=== PATIENT | female | born 2000 | race Two or more races ===

== ENCOUNTER 2021-11-03 18:30 | Emergency (ER) | payer SELFPAY ==
[~2021-11-03] VITALS: Ht 162.6 cm; Wt 61.7 kg
--- NOTE | 2021-11-03 18:46 | NUR ---
TO ER BED 4, [id number] C/O LEFT EYE PAIN WAS SEEN AT [facility] YESTERDAY AND PRESCRIBED BACTRIM, UPON ARRIVAL C/O FINGERTIPS TINGLING, AAOX3, DENIES, CONNECTED TO MONITOR, AWAITING MD ALLAN
--- NOTE | 2021-11-03 19:33 | NUR ---
URINE COLLECTED AND SENT TO LAB
[2021-11-03] MEDS ORDERED: diphenhydrAMINE HCL 50 MG/ML VIAL IV ONE (21:00)
[2021-11-03] MEDS ORDERED: KETOROLAC TROMETHAMINE INJ 30 MG/ML VIAL IV ONE (21:00)
[2021-11-03] MEDS ORDERED: IV NS 0.9% 1,000 ML BAG IV ONE ×2 (21:00→22:30)
[2021-11-03] MEDS ORDERED: METOCLOPRAMIDE HCL 10 MG/2 ML VIAL IV ONE (21:00)
[2021-11-03] MEDS ORDERED: KETOROLAC TROMETHAMINE INJ 30 MG/ML VIAL ONE (21:01)
[2021-11-03] MEDS ORDERED: diphenhydrAMINE HCL 50 MG/ML VIAL ONE (21:01)
[2021-11-03] MEDS ORDERED: METOCLOPRAMIDE HCL 10 MG/2 ML VIAL ONE (21:01)
--- NOTE | 2021-11-03 21:24 | NUR ---
LAC #20G S/L PATENT AND INTACT. BLOOD COLLECTED AND SENT TO LAB
[2021-11-03 21:25] LABS: BASOPHILS # (AUTO) 0.1 K/uL (0.0-0.2); BASOPHILS % (AUTO) 0.4 % (0.0-2.0); EOSINOPHILS % (AUTO) 1.1 % (0.0-6.0); HEMATOCRIT 40 % (33-45); HEMOGLOBIN 13.5 g/dL (11.5-14.8); LYMPHOCYTES # (AUTO) 1.5 K/uL (0.8-4.8); LYMPHOCYTES % (AUTO) 6.4 % (20.0-44.0); MEAN CORPUSCULAR HGB CONC 34 g/dl (31.0-36.0); MEAN CORPUSCULAR VOLUME 82 fL (82-100); MONOCYTES # (AUTO) 0.7 K/uL (0.1-1.30); NEUTROPHILS # (AUTO) 20.4 K/uL (1.8-8.9); NEUTROPHILS % (AUTO) 89.1 % (43.0-81.0); PLATELET COUNT (AUTO) 286 K/uL (150-450); WHITE BLOOD COUNT (AUTO) 22.9 K/uL (4.3-11.0)
--- NOTE | 2021-11-03 21:25 | NUR ---
US TECH AT PT'S BEDSIDE
[2021-11-03 21:46] LABS: CALCIUM, SERUM 9.5 mg/dL (8.5-10.1); CREATININE 0.7 mg/dL (0.6-1.3); POTASSIUM 4.1 mmol/L (3.5-5.1)
[2021-11-03] MEDS ORDERED: CEFTRIAXONE 1GM BAG (ER ONLY) 50 ML IV ONE ×2 (22:11→22:30)
[2021-11-04] MEDS ORDERED: AMOX-430 PO (01:04)
--- NOTE | 2021-11-04 01:06 | NUR ---
URINE COLLECTED AND SENT TO LAB
[2021-11-04 01:33] LABS: BILIRUBIN,URINE NEGATIVE (NEGATIVE); COLOR,URINE YELLOW (YELLOW); LEUKOCYTE ESTERASE ,URINE NEGATIVE (NEGATIVE); NITRITE, URINE NEGATIVE (NEGATIVE); PH,URINE 6.5 (5.0-8.0); PROTEIN,URINE NEGATIVE (NEGATIVE); UGLUCOSE NEGATIVE (NEGATIVE); UROBILINOGEN,URINE 0.2 EU/dL (0.2)
--- NOTE | 2021-11-04 02:11 | NUR ---
Patient discharged to home in stable condition. Written and verbal after care instructions given. Patient verbalizes understanding of instruction. pt ambulatory with a steady gait
[2021-11-04 05:48] VITALS: BP 103/53
== END 2021-11-04 02:10 | disposition home or self-care (01) ==
LOC: ER 18:32
DX: J18.9 Pneumonia, unspecified organism (principal); G43.909 Migraine, unspecified, not intractable, without status migrainosus
CPT/HCPCS: 36415; 71045; 76642; 80048; 81003; 84703; 85025; 93005; 96361; 96365; 96375; 99285; J0696; J1200; J1885; J2765; J7030 ×2

== ENCOUNTER 2021-11-04 13:20 | Emergency (ER) | payer OTHER ==
[~2021-11-04] VITALS: Ht 162.6 cm; Wt 72.6 kg
[~2021-11-04 13:20] MED LIST: AMOX-430 PO
--- NOTE | 2021-11-04 13:50 | NUR ---
pt came in for left-sided upper and lower extremity weakness and numbness started at 12 pm tody. She states she was last normal at 1159. she c/o head ache and neck pain. pt is a/o x4, pt connected to monitor.
--- NOTE | 2021-11-04 13:58 | NUR ---
CALLED CODE STROKE
--- NOTE | 2021-11-04 14:00 | NUR ---
PT IS WHEELED TO CT SCAN VIA [facility].
--- NOTE | 2021-11-04 14:02 | NUR ---
CALLED [employer] TELE NEUROLOGIST IS DR. LARES
[2021-11-04] MEDS ORDERED: IV NS 0.9% 250 ML IV ONE (14:04)
[2021-11-04] MEDS ORDERED: IOHEXOL-350 100 ML VIAL IV ONE (14:04)
--- NOTE | 2021-11-04 14:04 | NUR ---
CORRECTION IT WILL BE DR. MERCADO TELE NEUROLOGIST.
[2021-11-04 14:34] LABS: BASOPHILS % (AUTO) 0.2 % (0.0-2.0); EOSINOPHILS % (AUTO) 3.5 % (0.0-6.0); HEMATOCRIT 39 % (33-45); HEMOGLOBIN 13.1 g/dL (11.5-14.8); LYMPHOCYTES # (AUTO) 1.5 K/uL (0.8-4.8); LYMPHOCYTES % (AUTO) 12.9 % (20.0-44.0); MEAN CORPUSCULAR HGB CONC 34 g/dl (31.0-36.0); MEAN CORPUSCULAR VOLUME 82 fL (82-100); MONOCYTES # (AUTO) 0.6 K/uL (0.1-1.30); MONOCYTES % (AUTO) 4.9 % (2.0-12.0); NEUTROPHILS # (AUTO) 9.3 K/uL (1.8-8.9); NEUTROPHILS % (AUTO) 78.5 % (43.0-81.0); PLATELET COUNT (AUTO) 286 K/uL (150-450); RED BLOOD CELL COUNT(AUTO) 4.73 MIL/uL (4.0-5.2); WHITE BLOOD COUNT (AUTO) 11.9 K/uL (4.3-11.0)
[2021-11-04 14:54] LABS: CALCIUM, SERUM 8.5 mg/dL (8.5-10.1); CREATININE 0.7 mg/dL (0.6-1.3); GLUCOSE 89 mg/dL (74-106); UREA NITROGEN, BLOOD 10 mg/dL (7-18)
[2021-11-04] MEDS ORDERED: KETOROLAC TROMETHAMINE INJ 30 MG/ML VIAL ONE (15:24)
[2021-11-04] MEDS ORDERED: diphenhydrAMINE HCL 50 MG/ML VIAL ONE (15:24)
[2021-11-04] MEDS ORDERED: PROCHLORPERAZINE EDISYLATE 10 MG/2 ML VIAL ONE (15:24)
[2021-11-04] MEDS ORDERED: diphenhydrAMINE HCL 50 MG/ML VIAL IV ONE (15:30)
[2021-11-04] MEDS ORDERED: PROCHLORPERAZINE EDISYLATE 10 MG/2 ML VIAL IVP ONE (15:30)
[2021-11-04] MEDS ORDERED: KETOROLAC TROMETHAMINE INJ 30 MG/ML VIAL IV ONE (15:30)
[2021-11-04] MEDS ORDERED: IV NS 0.9% 1,000 ML IV ONE (15:30)
--- NOTE | 2021-11-04 15:35 | NUR ---
CORRECTION for IV END TIME ADDENDUM: Intravenous End Time Documentation: Normal saline 1 liter (IV-WO) : start time: 1535 PM ; end time:1645 PM : IV site: [facility] PIV # 20 Port #1
[2021-11-04 17:46] LABS: CARBON DIOXIDE 20 mmol/L (21-32); CHLORIDE 104 mmol/L (98-107); POTASSIUM 3.6 mmol/L (3.5-5.1); SODIUM SERUM 136 mmol/L (136-145)
[2021-11-04 18:56] VITALS: BP 115/68
--- NOTE | 2021-11-04 18:56 | NUR ---
Patient discharged to home in stable condition. Written and verbal after care instructions given. Patient verbalizes understanding of instruction.IV removed. Catheter intact and site benign. Pressure and 4x4 applied to site. No bleeding noted.
== END 2021-11-04 18:56 | disposition home or self-care (01) ==
LOC: ER 13:24
DX: G43.109 Migraine with aura, not intractable, without status migrainosus (principal); R53.1 Weakness; Z20.822 Contact with and (suspected) exposure to COVID-19
CPT/HCPCS: 36415; 70450; 70496; 70498; 71045; 80048; 84484; 84702; 85025; 85730; 87426; 93005; 96361; 96374; 96375; 99285; C9803; J0780; J1200; J1885; J7030; J7050; Q9967